=== PATIENT | male | born 1970 | race Caucasian/White ===

== ENCOUNTER 2019-11-26 14:58 | Emergency (ER) | payer BC ==
[2019-11-26 15:04] VITALS: RESP 16; TEMP 98.1
[2019-11-26] MEDS ORDERED: SODIUM CHLORIDE 0.9% 1,000 ML IV STA (15:45)
[2019-11-26] MEDS ORDERED: MECLIZINE 12.5 MG TAB PO STA (15:45)
--- NOTE | 2019-11-26 15:54 | ED ---
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 He reports he's had these episodes intermittently for the past 2 years and they Typically go away. He reports he is more concerned today as it happened while driving for a prolonged period. Patient states he had no chest pain or shortness of breath associated with this. He denies any headache. He states t hat the symptoms of dizziness lightheadedness seemed to go away quickly when it does occur. HE denies feeling dizzy or having pain in ER. - Related Data Previous Rx's Medication Instructions Recorded Meclizine HCl 25 mg PO BID #20 tablet 11/26/19 Allergies Allergy/AdvReac Type Severity Reaction Status Date / Time Penicillins Allergy Unknown Verified 11/26/19 15:04 Review of Systems ROS Statement: Those systems with pertinent positive or pertinent negative responses have been documented in the HPI. ROS Other: All systems not noted in ROS Statement are negative. Past Medical History Past Medical History: Hypertension, Thyroid Disorder History of Any Multi-Drug Resistant Organisms: None Reported Past Surgical History: No Surgical Hx Reported Past Psychological History: No Psychological Hx Reported Smoking Status: Former smoker Past Alcohol Use History: Occasional Past Drug Use History: None Reported General Exam - General Exam Comments Initial Comments: 49 -year-old male. Alert and oriented 3. Limitations: no limitations General appearance: alert, in no apparent distress Head exam: Present: atraumatic, normocephalic, normal inspection Eye exam: Present: normal appearance, PERRL, EOMI. Absent: scleral icterus, conjunctival injection, periorbital swelling ENT exam: Present: normal exam, mucous membranes moist, other (Pt has nystagmus on left lateral gaze.) Neck exam: Present: normal inspection. Absent: tenderness, meningismus, lymphadenopathy Respiratory exam: Present: normal lung sounds bilaterally. Absent: respiratory distress, wheezes, rales, rhonchi, stridor Cardiovascular Exam: Present: regular rate, normal rhythm, normal heart sounds. Absent: systolic murmur, diastolic murmur, rubs, gallop, clicks GI/Abdominal exam: Present: soft, normal bowel sounds. Absent: distended, tenderness, guarding, rebound, rigid Extremities exam: Present: normal inspection, full ROM, normal capillary refill. Absent: tenderness, pedal edema, joint swelling, calf tenderness Back exam: Present: normal inspection Neurological exam: Present: alert, oriented X3, CN II-XII intact Psychiatric exam: Present: normal affect, normal mood Skin exam: Present: warm, dry, intact, normal color. Absent: rash Course Vital Signs 11/26/19 11/26/19 15:01 17:05 Temperature 98.1 F Pulse Rate 68 81 Respiratory 16 16 Rate Blood Pressure 153/91 148/79 O2 Sat by Pulse 94 L 99 Oximetry Medical Decision Making - Medical Decision Making 49 year old male with intermittent dizziness for 2 years. PAtient at this time has nystagmus and reproducible dizziness with lateral gaze and head movement. Discussed treatment for vertigo with meclizine. TMs appear normal, and denies headache or other complaints. EKG and troponin and labs are normal. Patient advised to follow up with PCP and discussed strict return parameters. - Lab Data Result diagrams: 11/26/19 15:50 11/26/19 15:50 Lab Results 11/26/19 11/26/19 11/26/19 Range/Units 15:50 15:50 15:50 WBC 12.4 H (3.8-10.6) k/uL RBC 4.81 (4.30-5.90) m/uL Hgb 14.8 (13.0-17.5) gm/dL Hct 44.5 (39.0-53.0) % MCV 92.5 (80.0-100.0) fL MCH 30.8 (25.0-35.0) pg MCHC 33.3 (31.0-37.0) g/dL RDW 12.6 (11.5-15.5) % Plt Count 215 (150-450) k/uL Neutrophils % 65 % Lymphocytes % 23 % Monocytes % 5 % Eosinophils % 5 % Basophils % 1 % Neutrophils # 8.0 H (1.3-7.7) k/uL Lymphocytes # 2.8 (1.0-4.8) k/uL Monocytes # 0.6 (0-1.0) k/uL Eosinophils # 0.6 (0-0.7) k/uL Basophils # 0.1 (0-0.2) k/uL Sodium 139 (137-145) mmol/L Potassium 3.6 (3.5-5.1) mmol/L Chloride 105 (98-107) mmol/L Carbon Dioxide 24 (22-30) mmol/L Anion Gap 10 mmol/L BUN 14 (9-20) mg/dL Creatinine 0.90 (0.66-1.25) mg/dL Est GFR (CKD-EPI)AfAm >90 (>60 ml/min/1.73 sqM) Est GFR (CKD-EPI)NonAf >90 (>60 ml/min/1.73 sqM) Glucose 104 H (74-99) mg/dL Calcium 9.8 (8.4-10.2) mg/dL Troponin I <0.012 (0.000-0.034) ng/mL 11/26/19 16:29 EKG shows normal sinus rhythm with moderate voltage criteria for LVH. May be normal variant. Borderline EKG. Ventricular rate of 64 bpm. Intervals 176 ms. QRS ration is 96 ms. QT QTc is 46/418 ms. Disposition Clinical Impression: Dizziness, Vertigo Disposition: HOME SELF-CARE Condition: Good Instructions (If sedation given, give patient instructions): Vertigo (ED), Di zziness (ED) Additional Instructions: Please use medication as discussed. Please follow up with family doctor if symptoms have not improved over the next two days. Please return to the emergency room if your symptoms increase or worsen or for any other concerns. Prescriptions: Meclizine HCl 25 mg PO BID #20 tablet Is patient prescribed a controlled substance at d/c from ED?: No Referrals: Morgan Suarez MD [Primary Care Provider] - 1-2 days Time of Disposition: 16:56
[2019-11-26 16:13] LABS: Basophils # (A) 0.1 k/uL (0-0.2); Basophils % (A) 1 %; Eosinophils # (A) 0.6 k/uL (0-0.7); Eosinophils % (A) 5 %; HCT 44.5 % (39.0-53.0); HGB 14.8 gm/dL (13.0-17.5); Lymphocytes # (A) 2.8 k/uL (1.0-4.8); Lymphocytes % (A) 23 %; MCH 30.8 pg (25.0-35.0); MCHC 33.3 g/dL (31.0-37.0); MCV 92.5 fL (80.0-100.0); Mean Platelet Volume 7.1; Monocytes # (A) 0.6 k/uL (0-1.0); Monocytes % (A) 5 %; Neutrophils % (A) 65 %; Platelet Count 215 k/uL (150-450); RBC 4.81 m/uL (4.30-5.90); RDW 12.6 % (11.5-15.5); WBC 12.4 k/uL (3.8-10.6)
[2019-11-26 16:24] LABS: African American GFR (CKD) >90 (>60 ml/min/1.73 sqM); Anion Gap 10 mmol/L; Blood Urea Nitrogen 14 mg/dL (9-20); Calcium 9.8 mg/dL (8.4-10.2); Carbon Dioxide 24 mmol/L (22-30); Chloride 105 mmol/L (98-107); Glucose 104 mg/dL (74-99); Non-African American GFR(CKD) >90 (>60 ml/min/1.73 sqM); Potassium 3.6 mmol/L (3.5-5.1); Sodium 139 mmol/L (137-145)
[2019-11-26 17:06] VITALS: BP 148/79; PULSE 81
== END 2019-11-26 17:00 | disposition home or self-care (01) ==
LOC: EC 14:58
DX: R42 Dizziness and giddiness (principal); H55.00 Unspecified nystagmus; Z88.0 Allergy status to penicillin; Z87.891 Personal history of nicotine dependence
CPT/HCPCS: 36415; 80048; 84484; 85025; 93005; 99284

== ENCOUNTER 2022-08-06 07:23 | Inpatient (IN) | payer BC, OTHER ==
[2022-08-06] MEDS ORDERED: SODIUM CHLORIDE 0.9% 1,000 ML IV STA (07:38)
[2022-08-06] MEDS ORDERED: DEXAMETHASONE SOD PHOSPHATE 10 MG/ML 1 ML VIAL IV STA (07:38)
--- NOTE | 2022-08-06 07:42 | ED ---
General Adult HPI - General Chief complaint: Upper Respiratory Infection Stated complaint: Difficulty Speaking & Swallowing Time Seen by Provider: 08/06/22 07:26 Source: patient Mode of arrival: ambulatory Limitations: no limitations - History of Present Illness Initial comments: Dictation was produced using [employer] dictation software. please excuse any grammatical, word or spelling errors. Chief Complaint: 51-year-old male with past medical history myocardial infarction presents to emergency department for dysphagia and odynophagia History of Present Illness: Patient is a 51-year-old male states that he woke up yesterday with severe throat pain. States that it hurts pretty severely whenever he tries to swallow. Patient states that he is unable to swallow solids however he is able to swallow fluids though rather painful. Patient felt perfectly fine Sunday. Sunday dinner he had breadsticks. Denies any runny nose or sore throat. Denies history of tobacco use. Denies any fever constitutional symptoms. No obvious sick exposure. reports that patient's worse seems a little worse The ROS documented in this emergency department record has been reviewed and confirmed by me. Those systems with pertinent positive or negative responses have been documented in the HPI. All other systems are other negative and/or noncontributory. - Related Data Previous Rx's Medication Instructions Recorded Meclizine HCl 25 mg PO BID #20 tablet 11/26/19 Allergies Allergy/AdvReac Type Severity Reaction Status Date / Time Penicillins Allergy Unknown Verified 08/06/22 07:29 Review of Systems ROS Statement: Those systems with pertinent positive or pertinent negative responses have been documented in the HPI. ROS Other: All systems not noted in ROS Statement are negative. Past Medical History Past Medical History: Hypertension, Myocardial Infarction ([place]), Thyroid Disorder History of Any Multi-Drug Resistant Organisms: None Reported Past Surgical History: Heart Catheterization Past Psychological History: No Psychological Hx Reported Smoking Status: Former smoker Past Alcohol Use History: Occasional Past Drug Use History: None Reported General Exam - General Exam Comments Initial Comments: PHYSICAL EXAM: General Impression: Alert and oriented x3, mild raspiness in her voice, t olerating secretions, no acute distress HEENT: Normocephalic atraumatic, extra-ocular movements intact, pupils equal and reactive to light bilaterally, mucous membranes moist, no pharyngeal erythema Cardiovascular: Heart regular rate and rhythm Chest: Able to complete full sentences, no retractions, no tachypnea Abdomen: abdomen soft, non-tender, non-distended, no organomegaly Musculoskeletal: Pulses present and equal in all extremities, no peripheral edema Motor: no focal deficits noted Neurological: CN II-XII grossly intact, no focal motor or sensory deficits noted Skin: Intact with no visualized rashes Psych: Normal affect and mood Limitations: no limitations Course Vital Signs 08/06/22 08/06/22 08/06/22 07:27 09:02 10:26 Temperature 99 F Pulse Rate 113 H 106 H 108 H Respiratory 20 18 18 Rate Blood Pressure 160/90 164/101 142/97 O2 Sat by Pulse 96 97 94 L Oximetry Medical Decision Making - Medical Decision Making Was pt. sent in by a medical professional or institution (, PA, SPORTS TEACHER, urgent care, hospital, or care home...) When possible be specific @ -No Did you speak to anyone other than the patient for history (EMS, parent, family, police, friend...)? What history was obtained from this source @ -No Did you review nursing and triage notes (agree or disagree)? Why? @ -I reviewed and agree with nursing and triage notes Were old charts reviewed (outside hosp., previous admission, EMS record, old EKG, old radiological studies, urgent care reports/EKG's, care home records)? Report findings @ -No old charts were reviewed Differential Diagnosis (chest pain, altered mental status, abdominal pain women, abdominal pain men, vaginal bleeding, musculoskeletal, weakness, fever, dyspnea, syncope, headache, dizziness, GI bleed, back pain, seizure, CVA, palpatations, mental health)? @ -Peritonsillar abscess, retropharyngeal abscess, esophageal foreign body, esophageal mass EKG interpreted by me (3pts min.). @ -None done X-rays interpreted by me (1pt min.). @ -None done CT interpreted by me (1pt min.). @ -Subglottic inflammation U/S interpreted by me (1pt. min.). @ -None done What testing was considered but not performed or refused? (CT, X-rays, U/S, labs)? Why? @ -None What meds were considered but not given or refused? Why? @ -None Did you discuss the management of the patient with other professionals (professionals i.e. , PA, SPORTS TEACHER, lab, RT, psych nurse, social and political studies professor, skeins yarn examiner, teacher, parole hearing officer, case worker)? Give summary @ -discussed with ENT tong hooker, Dr. Wilson who is aware of patient. Dr. Wilson requests corticosteroids and antibiotics. He will consult on patient Was smoking cessation discussed for >3mins.? @ -No Was critical care preformed (if so, how long)? @ -No Were there social determinants of health that impacted care today? How? (Homelessness, low income, unemployed, alcoholism, drug addiction, transportation, low edu. Level, literacy, decrease access to med. care, fdc, rehab)? @ -No Was there de-escalation of care discussed even if they declined (Discuss DNR or withdrawal of care, Hospice)? DNR status @ -No What co-morbidities impacted this encounter? (DM, HTN, Smoking, COPD, CAD, Cancer, CVA, ARF, Chemo, Hep., AIDS, mental health diagnosis, sleep apnea, morbid obesity)? @ -None Was patient admitted / discharged? Hospital course, mention meds given and route, prescriptions, significant lab abnormalities, going to OR and other pertinent info. @ -51 y Old male presents to the emergency department for a full swallowing. He does have some changes in his voice. He is however tolerating his secretions. CT soft tissue shows signs of inflammation at subglottic area. ENT requests antibiotic, corticosteroids. Patient be admitted for medical monitoring. Undiagnosed new problem with uncertain prognosis? @ -No Drug Therapy requiring intensive monitoring for toxicity (Heparin, Nitro, Insulin, Cardizem)? @ -No Were any procedures done? @ -No Diagnosis/symptom? Acute, or Chronic, or Acute on Chronic? Uncomplicated (without systemic symptoms) or Complicated (systemic symptoms)? @ -1. Acute complicated Subglottic phlegmon Side effects of treatment? @ -No Exacerbation, Progression, or Severe Exacerbation? @ -No Poses a threat to life or bodily function? How? (Chest pain, [place], [place], pneumonia, PE, COPD, DKA, ARF, appy, cholecystitis, CVA, Diverticulitis, Homicidal, Suicidal, threat to staff... and all critical care pts) @ -yes - Lab Data Result diagrams: 08/06/22 07:53 08/06/22 07:53 Lab Results 08/06/22 08/06/22 08/06/22 Range/Units 07:48 07:48 07:53 WBC 13.9 H (3.8-10.6) k/uL RBC 4.73 (4.30-5.90) m/uL Hgb 14.7 (13.0-17.5) gm/dL Hct 42.3 (39.0-53.0) % MCV 89.5 (80.0-100.0) fL MCH 31.1 (25.0-35.0) pg MCHC 34.7 (31.0-37.0) g/dL RDW 13.5 (11.5-15.5) % Plt Count 156 (150-450) k/uL MPV 7.4 Neutrophils % 75 % Lymphocytes % 13 % Monocytes % 7 % Eosinophils % 1 % Basophils % 0 % Neutrophils # 10.5 H (1.3-7.7) k/uL Lymphocytes # 1.9 (1.0-4.8) k/uL Monocytes # 1.0 (0-1.0) k/uL Eosinophils # 0.1 (0-0.7) k/uL Basophils # 0.0 (0-0.2) k/uL Sodium (137-145) mmol/L Potassium (3.5-5.1) mmol/L Chloride (98-107) mmol/L Carbon Dioxide (22-30) mmol/L Anion Gap mmol/L BUN (9-20) mg/dL Creatinine (0.66-1.25) mg/dL Est GFR (CKD-EPI)AfAm (>60 ml/min/1.73 sqM) Est GFR (CKD-EPI)NonAf (>60 ml/min/1.73 sqM) Glucose (74-99) mg/dL Calcium (8.4-10.2) mg/dL Influenza Type A (PCR) Not Detected (Not Detectd) Influenza Type B (PCR) Not Detected (Not Detectd) RSV (PCR) Not Detected (Not Detectd) SARS-CoV-2 (PCR) Not Detected (Not Detectd) Group A Strep (PCR) NOT DETECTED (Not Detectd) 08/06/22 Range/Units 07:53 WBC (3.8-10.6) k/uL RBC (4.30-5.90) m/uL Hgb (13.0-17.5) gm/dL Hct (39.0-53.0) % MCV (80.0-100.0) fL MCH (25.0-35.0) pg MCHC (31.0-37.0) g/dL RDW (11.5-15.5) % Plt Count (150-450) k/uL MPV Neutrophils % % Lymphocytes % % Monocytes % % Eosinophils % % Basophils % % Neutrophils # (1.3-7.7) k/uL Lymphocytes # (1.0-4.8) k/uL Monocytes # (0-1.0) k/uL Eosinophils # (0-0.7) k/uL Basophils # (0-0.2) k/uL Sodium 139 (137-145) mmol/L Potassium 3.7 (3.5-5.1) mmol/L Chloride 104 (98-107) mmol/L Carbon Dioxide 24 (22-30) mmol/L Anion Gap 11 mmol/L BUN 14 (9-20) mg/dL Creatinine 0.82 (0.66-1.25) mg/dL Est GFR (CKD-EPI)AfAm >90 (>60 ml/min/1.73 sqM) Est GFR (CKD-EPI)NonAf >90 (>60 ml/min/1.73 sqM) Glucose 131 H (74-99) mg/dL Calcium 9.1 (8.4-10.2) mg/dL Influenza Type A (PCR) (Not Detectd) Influenza Type B (PCR) (Not Detectd) RSV (PCR) (Not Detectd) SARS-CoV-2 (PCR) (Not Detectd) Group A Strep (PCR) (Not Detectd) Disposition Clinical Impression: Pharyngitis Disposition: ADMITTED IP TO THIS HOSP Condition: Serious Referrals: Morgan Suarez MD [Primary Care Provider] - 1-2 days Decision Time: 10:15
[2022-08-06 08:03] LABS: Basophils % (A) 0 %; Eosinophils # (A) 0.1 k/uL (0-0.7); Eosinophils % (A) 1 %; HCT 42.3 % (39.0-53.0); HGB 14.7 gm/dL (13.0-17.5); Lymphocytes # (A) 1.9 k/uL (1.0-4.8); Lymphocytes % (A) 13 %; MCH 31.1 pg (25.0-35.0); MCHC 34.7 g/dL (31.0-37.0); MCV 89.5 fL (80.0-100.0); Mean Platelet Volume 7.4; Monocytes % (A) 7 %; Neutrophils # (A) 10.5 k/uL (1.3-7.7); Neutrophils % (A) 75 %; Platelet Count 156 k/uL (150-450); RBC 4.73 m/uL (4.30-5.90); RDW 13.5 % (11.5-15.5); WBC 13.9 k/uL (3.8-10.6)
[2022-08-06 08:17] LABS: African American GFR (CKD) >90 (>60 ml/min/1.73 sqM); Anion Gap 11 mmol/L; Blood Urea Nitrogen 14 mg/dL (9-20); Calcium 9.1 mg/dL (8.4-10.2); Carbon Dioxide 24 mmol/L (22-30); Chloride 104 mmol/L (98-107); Glucose 131 mg/dL (74-99); Non-African American GFR(CKD) >90 (>60 ml/min/1.73 sqM); Potassium 3.7 mmol/L (3.5-5.1); Sodium 139 mmol/L (137-145)
--- NOTE | 2022-08-06 08:29 | CT ---
EXAMINATION TYPE: CT soft tissue neck w con DATE OF EXAM: 08/06/2022 COMPARISON: None HISTORY: Sore throat, swelling and fever CT DLP: 504.9 mGycm CONTRAST: CT scan of the neck is performed with IV Contrast, patient injected with 100 mL of Isovue 300. Contrast enhanced CT of the neck was performed from the skull base through the lung apices. AIRWAY: The supraglottic portion of the airway appear patent and free of mass. There is thickening of the epiglottis measuring 1 cm. There is thickening of the aryepiglottic folds. Within the subglottic airway there is retropharyngeal edema with thickness of 2.3 cm. Small focal area of decreased attenu ation measuring 7 mm may reflect phlegmon or early developing abscess which does not appear drainable this time. See image 41 sequence 201. SALIVARY GLANDS: The submandibular and parotid glands are free of mass or inflammatory process. THYROID GLAND: The right thyroid lobe measuring 2.1 cm. Ultrasound correlation is advised. LYMPH NODES: Left internal jugular chain adenopathy with several lymph nodes greater than 1 cm. Subce ntimeter shotty adenopathy right internal jugular chain. LUNG APICES: No nodule or mass is seen. OTHER: Vascular structures are patent. No significant degenerative change of the cervical spine. N o abscess seen. Chronic maxillary and ethmoidal chronic sinusitis. IMPRESSION: 1. There is evidence of pharyngitis with thickening of the epiglottis and aryepiglottic folds. As not ed focal area of phlegmon is seen. Early developing abscess measuring 7 mm difficult to exclude.
[2022-08-06] MEDS ORDERED: CLINDAMYCIN 900 MG in DEXTROSE 5% IN WATER 50 ML IVPB STA ×2 (08:48)
[2022-08-06] MEDS ORDERED: cefTRIAXone IN SWFI 1,000 MG/10 ML SYRINGE IVP STA (10:23)
[2022-08-06] MEDS ORDERED: VANCOMYCIN IV PER PHARMACY 1 EACH MISC MISCELLANE PRN (10:26)
[2022-08-06] MEDS ORDERED: ACETAMINOPHEN TAB 325 MG TAB PO PRN (10:57)
[2022-08-06] MEDS ORDERED: NALOXONE 0.4 MG/ML 1 ML VIAL IV PRN (10:57)
[2022-08-06] MEDS ORDERED: VANCOMYCIN 1,750 MG in SODIUM CHLORIDE 0.9% 500 ML 500 ML IVPB ONE (11:00)
[2022-08-06] MEDS: SODIUM CHLORIDE 0.9% 1,000 ML IV SCH (11:56)
[2022-08-06] MEDS: KETOROLAC 15 MG/ML 1 ML VIAL IVP SCH ×2 (13:57→18:04)
[2022-08-06] MEDS: METOPROLOL SUCCINATE (ER) 25 MG TAB.ER.24H PO SCH (14:00)
[2022-08-06] MEDS: LEVOTHYROXINE 75 MCG TAB PO SCH (14:01)
[2022-08-06] MEDS: VANCOMYCIN 1,750 MG in SODIUM CHLORIDE 0.9% 500 ML 500 ML IVPB SCH (20:10)
[2022-08-06] MEDS: SYMBICORT 80-4.5 MCG INHALER INHALATION SCH (20:28)
[2022-08-07] MEDS: KETOROLAC 15 MG/ML 1 ML VIAL IVP SCH ×3 (00:07→12:32)
--- NOTE | 2022-08-07 00:12 | P.HPIM ---
History of Present Illness H&P Date: 08/06/22 Chief Complaint: Throat pain Patient is a 51-year-old male with a long history of hypertension, hypothyroidism, history ND status post cardiac catheterization no PCI, prior hi story of smoking presents to ER with complaints of difficulty and painful swallowing. Patient states her symptoms started since Sunday morning. Patient was having severe throat pain whenever he tries to swallow. Was able to swallow liquids however. Denies any recent sinusitis. No upper respiratory infection recently. No sore throat or runny nose. No recent trauma. No sick contacts or recent travel. Denies any fever or chills. Patient was tachycardic with heart rate 113 on admission and Tmax was 99.0. CT of the soft tissue neck showed there is evidence of pharyngitis with thickening of the epiglottis and periglottic folds. As noted focal area of phlegmon is seen. Early developing abscess measuring 7 mm difficult to exclude. Laboratory data showed WBC 13.9 hemoglobin 14.7 platelets 156 Sodium 139 potassium 3.7 chloride 104 bicarb is 24 BUN 14 and creatinine 0.82 and blood sugar is 131. Group A strep PCR not detected. Influenza A, B, RSV and COVID-19 PCR not detected. Acute pharyngitis with focal area of phlegmon and possible developing abscess. Dysphagia and odynophagia x1 day duration Hypertension Hypothyroidism History ND s/p cardiac cath no PCI GI and DVT prophylaxis Plan: Patient will be continued on IV hydration and antibiotics vancomycin and ceftriaxone. Was given a dose of dexamethasone 10 g IV push in the ER. Continue to monitor breathing status. Patient able to swallow soft diet and clear liquids at this time.. ENT was consulted for evaluation. Continue with home medications and follow-up closely. Past Medical History Past Medical History: Hypertension, Myocardial Infarction ([place]), Thyroid Disorder Last Myocardial Infarction Date:: 08/07/21 History of Any Multi-Drug Resistant Organisms: None Reported Past Surgical History: Heart Catheterization Past Anesthesia/Blood Transfusion Reactions: No Reported Reaction Past Psychological History: No Psychological Hx Reported Smoking Status: Former smoker Past Alcohol Use History: Occasional Past Drug Use History: None Reported - Past Family History Father Family Medical History: Myocardial Infarction ([place]) Mother Family Medical History: Cancer Medications and Allergies Home Medications Medication Instructions Recorded Confirmed Type Aspirin EC [Ecotrin Low Dose] 81 mg PO DAILY 08/06/22 08/06/22 History Atorvastatin [Lipitor] 20 mg PO DAILY 08/06/22 08/06/22 History Clopidogrel [Plavix] 75 mg PO DAILY 08/06/22 08/06/22 History Fluticasone Propion/Salmeterol 1 puff INHALATION RT-BID 08/06/22 08/06/22 History [Fluticasone-Salmeterol 250-50] Levothyroxine Sodium [Synthroid] 75 mcg PO DAILY 08/06/22 08/06/22 History Metoprolol Succinate [Metoprolol 25 mg PO DAILY 08/06/22 08/06/22 History Succinate ER] Nitroglycerin Sl Tabs [Nitrostat] 0.4 mg SUBLINGUAL Q5M PRN 08/06/22 08/06/22 History Sildenafil Citrate [Viagra] 100 mg PO DAILY PRN 08/06/22 08/06/22 History lisinopriL 40 mg PO DAILY 08/06/22 08/06/22 History Allergies Allergy/AdvReac Type Severity Reaction Status Date / Time Penicillins Allergy Unknown Verified 08/06/22 11:32 Physical Exam Vitals: Vital Signs Temp Pulse Pulse Resp BP BP Pulse Ox 08/06/22 14:03 98.8 F 99 18 153/96 94 L 08/06/22 12:09 99.0 F 99 18 145/91 95 08/06/22 12:01 103 H 18 138/89 96 08/06/22 10:26 108 H 18 142/97 94 L 08/06/22 09:02 106 H 18 164/101 97 08/06/22 07:27 99 F 113 H 20 160/90 96 Intake and Output 08/05/22 08/06/22 08/06/22 22:59 06:59 14:59 Other: Weight 106.594 kg Results CBC & Chem 7: 08/06/22 07:53 08/06/22 07:53 Labs: Abnormal Lab Results - Last 24 Hours (Table) 08/06/22 08/06/22 Range/Units 07:53 07:53 WBC 13.9 H (3.8-10.6) k/uL Neutrophils # 10.5 H (1.3-7.7) k/uL Glucose 131 H (74-99) mg/dL Thrombosis Risk Factor Assmnt - Choose All That Apply Any of the Below Risk Factors Present?: Yes Each Factor Represents 1 point: Age 41-60 years, Obesity (BMI >25) Other Risk Factors: No Other congenital or acquired thrombophilia - If yes, enter type in comment: No Thrombosis Risk Factor Assessment Total Risk Factor Score: 2 Thrombosis Risk Factor Assessment Level: Low Risk
[2022-08-07] MEDS: VANCOMYCIN 1,750 MG in SODIUM CHLORIDE 0.9% 500 ML 500 ML IVPB SCH ×2 (04:25→11:43)
[2022-08-07] MEDS: SODIUM CHLORIDE 0.9% 1,000 ML IV SCH ×2 (04:25→15:03)
[2022-08-07] MEDS: LEVOTHYROXINE 75 MCG TAB PO SCH (06:13)
[2022-08-07] MEDS: METOPROLOL SUCCINATE (ER) 25 MG TAB.ER.24H PO SCH (07:29)
[2022-08-07 07:39] VITALS: TEMP 98.1
[2022-08-07] MEDS ORDERED: ATORVASTATIN 20 MG TAB PO SCH (09:00)
[2022-08-07] MEDS ORDERED: lisinopriL 20 MG TAB PO SCH (09:00)
[2022-08-07] MEDS ORDERED: ASPIRIN 81 MG PO SCH (09:00)
[2022-08-07] MEDS ORDERED: CLOPIDOGREL 75 MG TAB PO SCH (09:00)
[2022-08-07 09:01] LABS: HCT 42.8 % (39.6-50.0); HGB 14.4 g/dL (13.0-17.0); MCH 30.7 pg (27.0-32.0); MCHC 33.6 g/dL (32.0-37.0); MCV 91.3 fL (80.0-97.0); Mean Platelet Volume 10.7 fL (9.5-12.2); NRBC Per 100 WBC 0 /100 WBCS (0.0-0.0); Platelet Count 154 X 10*3/uL (140-440); RBC 4.69 X 10*6/uL (4.40-5.60); RDW 13.3 % (11.5-14.5); WBC 15.07 X 10*3/uL (4.50-10.00)
[2022-08-07 09:13] LABS: Anion Gap 9.8 mmol/L (10.00-18.00); BUN/Creat Ratio 18.44 Ratio (12.00-20.00); Blood Urea Nitrogen 12.8 mg/dL (9.0-27.0); Calcium 8.7 mg/dL (8.7-10.3); Carbon Dioxide 22.7 mmol/L (20.0-27.5); Non-African American GFR(CKD) 110.4 (60.0-200.0); Potassium 3.9 mmol/L (3.5-5.5)
[2022-08-07] MEDS: SYMBICORT 80-4.5 MCG INHALER INHALATION SCH (09:26)
[2022-08-07 10:07] LABS: Basophils # (A) 0.03 X 10*3/uL (0.00-0.10); Basophils % (A) 0.2 %; Eosinophils # (A) 0 X 10*3/uL (0.04-0.35); Eosinophils % (A) 0 %; Immature Grans, Automated 0.6 %; Lymphocytes # (A) 1.52 X 10*3/uL (0.90-5.00); Lymphocytes % (A) 10.1 %; Monocytes # (A) 1.68 X 10*3/uL (0.20-1.00); Monocytes % (A) 11.1 %; Neutrophils # (A) 11.75 X 10*3/uL (1.80-7.70)
[2022-08-07 10:08] LABS: RBC Morphology NORMAL
[2022-08-07 14:17] VITALS: BP 158/89; PULSE 67; RESP 17
[2022-08-07] MEDS ORDERED: VANCOMYCIN TROUGH DUE 1 EACH MISC MISCELLANE ONE (19:00)
--- NOTE | 2022-08-07 23:49 | CONS ---
CONSULTATION REASON FOR CONSULTATION: Difficulty swallowing. HISTORY OF PRESENT ILLNESS: This patient is a 51-year-old male who presented at [facility] on 08/06/2022, complaining of having difficulty swallowing and also a severe sore throat. 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 He monitored the situation, but apparently it got worse and progressed to the point that he was not able to swallow most food stuffs, including liquids. He denies running a temperature. He denies any referred otalgia. The patient is a nonsmoker and has not used any tobacco products since 2009. The patient subsequently presented at the [facility] on 08/06/2022 with complaints of dysphagia, sore throat, etc. Physical examination was not particularly remarkable. The patient did not exhibit any trismus. A CT scan of neck with contrast revealed evidence of supraglottic edema and a possible retropharyngeal phlegmon. I was consulted by the emergency room and at that time I advised the emergency room physician to give the patient an IV dose of Decadron to reduce the swelling. I also recommended that he be started on Rocephin and vancomycin and also that the patient should be admitted for observation. The patient was given the appropriate IV rates and was placed on a soft diet, advance as tolerated. The patient states that almost immediately after receiving the steroid, he noticed that his ability to swallow was markedly improved. In fact, by the time he arrived in his room, he was able to swallow without almost any difficulty. At the present time, he states that he is not having any pain in his throat or any difficulty swallowing. The patient does not have a history of having previous episodes of sore throats or pharyngitis. Past medical history reveals patient states the he was told when he was younger that he had an allergy to penicillin. However, he notes that he has received amoxicillin on multiple occasions. CURRENT HOME MEDICINES: 1. Plavix. 2. Nitrostat. 3. Metoprolol. 4. Fluticasone. 5. Salmeterol inhaler. 6. Lisinopril. 7. Synthroid. 8. Baby aspirin daily. 9. Lipitor. REVIEW OF SYSTEMS: CARDIOVASCULAR: Positive for ASHD and hypertension. RESPIRATORY: Positive for COPD/emphysema. METABOLIC/ENDOCRINE: Positive for hypothyroidism and hypercholesterolemia. The remainder of the review of systems is unremarkable. PHYSICAL EXAMINATION: GENERAL: This patient is a 51-year-old male who is alert, cooperative, and is in no acute distress at this time. HEENT: The patient is normocephalic. Tympanic membranes are normal. Middle ear spaces are free of any fluid or infection. Pupils are equal, round, reactive to light and accommodation. Extraocular movements are within normal limits. Intranasal examination reveals [id number] septal deviation to the right with bilateral compensatory hypertrophy of the inferior turbinates and a slight amount of clear mucus on the mucous membranes. Examination of oropharynx is unremarkable. NECK: Deep palpation of the neck is negative for any neck masses or lymphadenopathy. NEUROLOGIC: Cranial nerves 2 through 12 and remainder of the head and neck exam are within normal limits. CHEST/CARDIOVASCULAR: Both lung corado are clear to percussion and auscultation. Patient is in regular sinus rhythm. S1 and S2 are present without any murmurs, S3s, or S4. There are no rales, rhonchi, or wheezes. Peripheral pulses are bilaterally symmetrical and within normal limits. ABDOMEN: There is no evidence of any masses, megaly, or tenderness. The abdomen is soft. The remainder of physical exam is unremarkable. IMPRESSION: Pharyngitis with supraglottic edema and early (less than 7 mm) retropharyngeal phlegmon. PLAN: The patient has responded quite promptly to the IV antibiotics of vancomycin and Rocephin. He states that he feels well enough to go home on oral antibiotics. I will therefore recommend that the patient could be discharged to home on Cleocin capsules 150 mg #30. I have advised him to take 2 capsules p.o. t.i.d. until gone. I have also cautioned the patient that should he develop any loose stools or diarrhea, he should stop the medication at once and either call my office or call the emergency room. I will not need to see this patient in followup. I want to take this opportunity to thank you for allowing me to assist in the care of your patient. If I could be of any further assistance, please feel free to call my office. I spent approximately 45 minutes with this patient. MMODL / IJN: [id number] / [facility] CENTERLexi
== END 2022-08-07 15:20 | disposition home or self-care (01) | DRG 153 ==
LOC: EC 07:23 → 4SSUR 10:57
PROVIDERS: ADMIT Internal Medicine; ATTEND Internal Medicine
DX: J39.1 Other abscess of pharynx (principal); J38.4 Edema of larynx; J43.9 Emphysema, unspecified; I25.10 Atherosclerotic heart disease of native coronary artery without angina pectoris; E03.9 Hypothyroidism, unspecified; I10 Essential (primary) hypertension; I25.2 Old myocardial infarction; R00.0 Tachycardia, unspecified; E78.00 Pure hypercholesterolemia, unspecified; Z28.310 Unvaccinated for COVID-19; Z87.891 Personal history of nicotine dependence; Z79.890 Hormone replacement therapy; Z88.0 Allergy status to penicillin; Z79.02 Long term (current) use of antithrombotics/antiplatelets; Z79.899 Other long term (current) drug therapy; Z79.82 Long term (current) use of aspirin
CPT/HCPCS: 36415; 70491; 80048; 85025; 87636; 87651; 94640; 96361; 96365; 96366; 96375; 99285

== ENCOUNTER 2022-12-12 14:18 | Emergency (ER) | payer OTHER ==
[2022-12-12 14:22] VITALS: RESP 18
--- NOTE | 2022-12-12 15:02 | ED ---
General Adult HPI - General Chief complaint: Extremity Problem,Nontraumatic Stated complaint: R leg and foot red and swelling Time Seen by Provider: 12/12/22 14:23 Source: patient, RN notes reviewed Mode of arrival: ambulatory Limitations: no limitations - History of Present Illness Initial comments: 52-year-old male presents emergency Department with chief complaint of right leg swelling and redness 3 days. He states that he woke up on Sunday and noticed a sore on the bottom of his right foot. Since then he noticed some redness and swelling to his right leg. He states that he woke up this morning and had worsening swelling and erythema. He denies fever, chills. Denies nausea, vomiting. - Related Data Home Medications Medication Instructions Recorded Confirmed Aspirin EC [Ecotrin Low Dose] 81 mg PO DAILY 08/06/22 08/06/22 Atorvastatin [Lipitor] 20 mg PO DAILY 08/06/22 08/06/22 Clopidogrel [Plavix] 75 mg PO DAILY 08/06/22 08/06/22 Fluticasone Propion/Salmeterol 1 puff INHALATION RT-BID 08/06/22 08/06/22 [Fluticasone-Salmeterol 250-50] Levothyroxine Sodium [Synthroid] 75 mcg PO DAILY 08/06/22 08/06/22 Metoprolol Succinate [Metoprolol 25 mg PO DAILY 08/06/22 08/06/22 Succinate ER] Nitroglycerin Sl Tabs [Nitrostat] 0.4 mg SUBLINGUAL Q5M PRN 08/06/22 08/06/22 Sildenafil Citrate [Viagra] 100 mg PO DAILY PRN 08/06/22 08/06/22 lisinopriL 40 mg PO DAILY 08/06/22 08/06/22 Previous Rx's Medication Instructions Recorded clindamycin HCL 300 mg PO QID #28 cap 12/12/22 Allergies Allergy/AdvReac Type Severity Reaction Status Date / Time Penicillins Allergy Unknown Verified 12/12/22 14:22 Review of Systems ROS Statement: Those systems with pertinent positive or pertinent negative responses have been documented in the HPI. ROS Other: All systems not noted in ROS Statement are negative. Past Medical History Past Medical History: Hypertension, Myocardial Infarction ([place]), Thyroid Disorder Last Myocardial Infarction Date:: 08/07/21 History of Any Multi-Drug Resistant Organisms: None Reported Past Surgical History: Heart Catheterization Past Anesthesia/Blood Transfusion Reactions: No Reported Reaction Past Psychological History: No Psychological Hx Reported Smoking Status: Former smoker Past Alcohol Use History: Occasional Past Drug Use History: None Reported - Past Family History Father Family Medical History: Myocardial Infarction ([place]) Mother Family Medical History: Cancer General Exam Limitations: no limitations General appearance: alert, in no apparent distress Head exam: Present: atraumatic, normocephalic, normal inspection Eye exam: Present: normal appearance, PERRL, EOMI. Absent: scleral icterus, conjunctival injection, periorbital swelling ENT exam: Present: normal exam, mucous membranes moist Neck exam: Present: normal inspection. Absent: tenderness, meningismus, lymphadenopathy Respiratory exam: Present: normal lung sounds bilaterally. Absent: respiratory distress, wheezes, rales, rhonchi, stridor Cardiovascular Exam: Present: regular rate, normal rhythm, normal heart sounds. Absent: systolic murmur, diastolic murmur, rubs, gallop, clicks GI/Abdominal exam: Present: soft, normal bowel sounds. Absent: distended, tenderness, guarding, rebound, rigid Extremities exam: Present: full ROM, normal capillary refill, other (Edema and erythema to right leg). Absent: tenderness, pedal edema, joint swelling, calf tenderness Back exam: Present: normal inspection Neurological exam: Present: alert, oriented X3 Psychiatric exam: Present: normal affect, normal mood Skin exam: Present: warm, dry, other (right foot plantar surface pustule, DP and PT pulses 2+, erythema and edema to right lower extremity) Course Vital Signs 12/12/22 12/12/22 14:19 16:54 Temperature 98.9 F 98.6 F Pulse Rate 80 70 Respiratory 18 18 Rate Blood Pressure 176/90 155/92 O2 Sat by Pulse 98 97 Oximetry Medical Decision Making - Medical Decision Making Was pt. sent in by a medical professional or institution (, PA, CRUTCHER HELPER, urgent care, hospital, or senior care...) When possible be specific @ -No Did you speak to anyone other than the patient for history (EMS, parent, family, police, friend...)? What history was obtained from this source @ -No Did you review nursing and triage notes (agree or disagree)? Why? @ -I reviewed and agree with nursing and triage notes Were old charts reviewed (outside hosp., previous admission, EMS record, old EKG, old radiological studies, urgent care reports/EKG's, senior care records)? Report findings @ -No old charts were reviewed Differential Diagnosis (chest pain, altered mental status, abdominal pain women, abdominal pain men, vaginal bleeding, weakness, fever, dyspnea, syncope, headache, dizziness, GI bleed, back pain, seizure, CVA, palpatations, mental health, musculoskeletal)? @ -Differential Musculoskeletal Muscular strain, contusion, ligament sprain, fracture, arthritis, septic arthritis, bursitis, cellulitis, muscle spasm, nerve compression, DVT, arterial occlusion, herpes zoster, electrolyte abnormality, tumor.... This is not meant to be in all inclusive list EKG interpreted by me (3pts min.). @ -none X-rays interpreted by me (1pt min.). @ -None done CT interpreted by me (1pt min.). @ -None done U/S interpreted by me (1pt. min.). @ -Ultrasound of the right lower sternal me showed no evidence of DVT What testing was considered but not performed or refused? (CT, X-rays, U/S, labs)? Why? @ -None What meds were considered but not given or refused? Why? @ -None Did you discuss the management of the patient with other professionals (professionals i.e. , PA, CRUTCHER HELPER, lab, RT, psych nurse, manager social work, communications administrator, teacher, community liaison officer, rifle case repairer)? Give summary @ -No Was smoking cessation discussed for >3mins.? @ -No Was critical care preformed (if so, how long)? @ -No Were there social determinants of health that impacted care today? How? (Homelessness, low income, unemployed, alcoholism, drug addiction, transportation, low edu. Level, literacy, decrease access to med. care, detention, r ehab)? @ -No Was there de-escalation of care discussed even if they declined (Discuss DNR or withdrawal of care, Hospice)? DNR status @ -No What co-morbidities impacted this encounter? (DM, HTN, Smoking, COPD, CAD, Cancer, CVA, ARF, Chemo, Hep., AIDS, mental health diagnosis, sleep apnea, morbid obesity)? @ -None Was patient admitted / discharged? Hospital course, mention meds given and route, prescriptions, significant lab abnormalities, going to OR and other pertinent info. @ -Discharged. Patient presented to emergency department with chief complaint of right lower extremity swelling and redness and patient has a sore on his foot. This was drained and wound culture sent. Ultrasound obtained which showed no evidence of DVT, reactive lymph node. Patient was started on clindamycin. Strict return precautions discussed. Patient stable at time of discharge. Case discussed my attending, Dr. Ruth will also evaluated the patient and is agreeable with the plan. Undiagnosed new problem with uncertain prognosis? @ -No Drug Therapy requiring intensive monitoring for toxicity (Heparin, Nitro, Insulin, Cardizem)? @ -No Were any procedures done? @ -No Diagnosis/symptom? @ -cellulitis of right lower extremity Acute, or Chronic, or Acute on Chronic? @ -acute Uncomplicated (without systemic symptoms) or Complicated (systemic symptoms)? @ -uncomplicated Side effects of treatment? @ -No Exacerbation, Progression, or Severe Exacerbation? @ -No Poses a threat to life or bodily function? How? (Chest pain, [place], [place], pneumonia, PE, COPD, DKA, ARF, appy, cholecystitis, CVA, Diverticulitis, Homicidal, Suicidal, threat to staff... and all critical care pts) @ -No Disposition Clinical Impression: Cellulitis Disposition: HOME SELF-CARE Condition: Stable Instructions (If sedation given, give patient instructions): Cellulitis (ED) Additional Instructions: Please take antibiotics to completion. Follow up with your primary care provider. Return to the emergency department for new or worsening symptoms. Prescriptions: clindamycin HCL 300 mg PO QID #28 cap Is patient prescribed a controlled substance at d/c from ED?: No Referrals: Morgan Suarez MD [Primary Care Provider] - 1-2 days
--- NOTE | 2022-12-12 15:58 | US ---
EXAMINATION TYPE: US venous doppler duplex LE RT DATE OF EXAM: 12/12/2022 3:49 PM COMPARISON: NONE CLINICAL INDICATION: Male, 52 years old with history of swelling, redness; edema redness SIDE PERFORMED: Right TECHNIQUE: The lower extremity deep venous system is examined utilizing real time linear array sonog milvia with graded compression, doppler sonography and color-flow sonography. VESSELS IMAGED: Common Femoral Vein Deep Femoral Vein Greater Saphenous Vein * Femoral Vein Popliteal Vein Small Saphenous Vein * Proximal Calf Veins (* superficial vessels) Grayscale, color doppler, spectral doppler imaging performed of the deep veins of the right lower ext remity. There is normal flow, compressibility, vascular waveforms. Right Leg: Negative for DVT Hypoechoic area seen Femoral area 3.1 x 1.4 x 1.0 cm. This is consistent with a lymph node with centr al fatty hilum. IMPRESSION: 1. No deep venous thrombosis of the right lower extremity. 2. Mildly enlarged right femoral lymph node which is likely reactive.
[2022-12-12] MEDS ORDERED: LIDOCAINE 1% INJ 10MG/ML (20 ML MDV) SQ ONE (16:19)
[2022-12-12 16:57] VITALS: BP 155/92; PULSE 70; TEMP 98.6
== END 2022-12-12 17:31 | disposition home or self-care (01) ==
LOC: EC 14:18
DX: L03.115 Cellulitis of right lower limb (principal); B96.89 Other specified bacterial agents as the cause of diseases classified elsewhere; I10 Essential (primary) hypertension; I25.2 Old myocardial infarction; E07.9 Disorder of thyroid, unspecified; Z79.82 Long term (current) use of aspirin; Z79.02 Long term (current) use of antithrombotics/antiplatelets; Z79.51 Long term (current) use of inhaled steroids; Z79.890 Hormone replacement therapy; Z79.899 Other long term (current) drug therapy; Z87.891 Personal history of nicotine dependence; Z88.0 Allergy status to penicillin
CPT/HCPCS: 87070; 87205; 93971; 99284; J2001

== ENCOUNTER 2023-06-29 06:45 | Emergency (ER) | payer OTHER ==
[2023-06-29 07:23] VITALS: TEMP 98.1
--- NOTE | 2023-06-29 07:32 | ED ---
Abdominal Pain HPI - General Chief Complaint: Abdominal Pain Stated Complaint: rt side abd pain Time Seen by Provider: 06/29/23 07:01 Source: patient, RN notes reviewed Mode of arrival: ambulatory Limitations: no limitations - History of Present Illness Initial Comments: 52-year-old male presents emergency department with chief complaint of abdominal pain. He states he has increased last 3 to 4 days on the right side. States he cannot lay on left side because it makes pain worse. Denies any trauma denies any rashes no prior abdominal surgeries no dysuria no hematuria no change in bowel habits. Denies fever. He has no association with eating making it worse. States it is more on the right upper by his ribs - Related Data Home Medications Medication Instructions Recorded Confirmed Aspirin EC [Ecotrin Low Dose] 81 mg PO DAILY 08/06/22 08/06/22 Atorvastatin [Lipitor] 20 mg PO DAILY 08/06/22 08/06/22 Clopidogrel [Plavix] 75 mg PO DAILY 08/06/22 08/06/22 Fluticasone Propion/Salmeterol 1 puff INHALATION RT-BID 08/06/22 08/06/22 [Fluticasone-Salmeterol 250-50] Levothyroxine Sodium [Synthroid] 75 mcg PO DAILY 08/06/22 08/06/22 Metoprolol Succinate [Metoprolol 25 mg PO DAILY 08/06/22 08/06/22 Succinate ER] Nitroglycerin Sl Tabs [Nitrostat] 0.4 mg SUBLINGUAL Q5M PRN 08/06/22 08/06/22 Sildenafil Citrate [Viagra] 100 mg PO DAILY PRN 08/06/22 08/06/22 lisinopriL 40 mg PO DAILY 08/06/22 08/06/22 Previous Rx's Medication Instructions Recorded clindamycin HCL 300 mg PO QID #28 cap 12/12/22 Allergies Allergy/AdvReac Type Severity Reaction Status Date / Time Penicillins Allergy Unknown Verified 06/29/23 07:12 Review of Systems ROS Statement: Those systems with pertinent positive or pertinent negative responses have been documented in the HPI. ROS Other: All systems not noted in ROS Statement are negative. Past Medical History Past Medical History: Hypertension, Myocardial Infarction ([place]), Thyroid Disorder Last Myocardial Infarction Date:: 08/07/21 History of Any Multi-Drug Resistant Organisms: None Reported Past Surgical History: Heart Catheterization Past Anesthesia/Blood Transfusion Reactions: No Reported Reaction Past Psychological History: No Psychological Hx Reported Smoking Status: Former smoker Past Alcohol Use History: Occasional Past Drug Use History: None Reported - Past Family History Father Family Medical History: Myocardial Infarction ([place]) Mother Family Medical History: Cancer General Exam Limitations: no limitations General appearance: alert, in no apparent distress Head exam: Present: atraumatic, normocephalic, normal inspection Respiratory exam: Present: normal lung sounds bilaterally. Absent: respiratory distress, wheezes, rales, rhonchi, stridor Cardiovascular Exam: Present: regular rate, normal rhythm, normal heart sounds. Absent: systolic murmur, diastolic murmur, rubs, gallop, clicks GI/Abdominal exam: Present: soft, tenderness (Right upper quadrant), normal bowel sounds. Absent: distended, guarding, rebound, rigid Back exam: Absent: CVA tenderness (R), CVA tenderness (L) Neurological exam: Present: alert Course Vital Signs 06/29/23 06/29/23 07:09 10:17 Temperature 98.1 F 98.1 F Pulse Rate 82 84 Respiratory 16 20 Rate Blood Pressure 161/94 161/100 O2 Sat by Pulse 95 94 L Oximetry Medical Decision Making - Medical Decision Making Was pt. sent in by a medical professional or institution (ZAYNAB Lau, PUBLICATIONS MANAGER, urgent care, hospital, or group home...) When possible be specific @ -No Did you speak to anyone other than the patient for history (EMS, parent, family, police, friend...)? What history was obtained from this source @ -No Did you review nursing and triage notes (agree or disagree)? Why? @ -I reviewed and agree with nursing and triage notes Were old charts reviewed (outside hosp., previous admission, EMS record, old EKG, old radiological studies, urgent care reports/EKG's, group home records)? Report findings @ -No old charts were reviewed Differential Diagnosis (chest pain, altered mental status, abdominal pain women, abdominal pain men, vaginal bleeding, weakness, fever, dyspnea, syncope, headache, dizziness, GI bleed, back pain, seizure, CVA, palpatations, mental health, musculoskeletal)? @ -[Differential Abdominal Pain Men: Appendicitis, cholecystitis, diverticulosis, ischemic bowel, pancreatitis, hepatitis, UTI, gastroenteritis, AAA, incarcerated hernia, bowel obstruction, constipation, inflammatory bowel, hepatitis, peptic ulcer disease, splenic infarction, perforated viscus, testicular torsion, this is not meant to be an all-inclusive list EKG interpreted by me (3pts min.). @ -None X-rays interpreted by me (1pt min.). @ -[None done CT interpreted by me (1pt min.). @ -CT abdomen pelvis showing liver fatty, cirrhosis, no other signs of acute infection U/S interpreted by me (1pt. min.). @ -Gallbladder showing cholelithiasis without evidence of acute cholecystitis What testing was considered but not performed or refused? (CT, X-rays, U/S, labs)? Why? @ -None What meds were considered but not given or refused? Why? @ -None Did you discuss the management of the patient with other professionals (professionals i.e. , PA, PUBLICATIONS MANAGER, lab, RT, psych nurse, social work associate, order selector, teacher, budget officer, complex case manager)? Give summary @ -No Was smoking cessation discussed for >3mins.? @ -No Was critical care preformed (if so, how long)? @ -No Were there social determinants of health that impacted care today? How? (Homelessness, low income, unemployed, alcoholism, drug addiction, transpor tation, low edu. Level, literacy, decrease access to med. care, snf, rehab)? @ -No Was there de-escalation of care discussed even if they declined (Discuss DNR or withdrawal of care, Hospice)? DNR status @ -No What co-morbidities impacted this encounter? (DM, HTN, Smoking, COPD, CAD, Cancer, CVA, ARF, Chemo, Hep., AIDS, mental health diagnosis, sleep apnea, morbid obesity)? @ -None Was patient admitted / discharged? Hospital course, mention meds given and route, prescriptions, significant lab abnormalities, going to OR and other pertinent info. @ -Discharged patient has evidence of gallstones will place on low-fat diet, given analgesics patient vies to contact surgeon return for any worsening or changing symptoms. Undiagnosed new problem with uncertain prognosis? @ -No Drug Therapy requiring intensive monitoring for toxicity (Heparin, Nitro, Insulin, Cardizem)? @ -No Were any procedures done? @ -No Diagnosis/symptom? @ cholelithiasis Acute, or Chronic, or Acute on Chronic? @ -Acute Uncomplicated (without systemic symptoms) or Complicated (systemic symptoms)? @ -Uncomplicated Side effects of treatment? @ -No Exacerbation, Progression, or Severe Exacerbation? @ -No Poses a threat to life or bodily function? How? (Chest pain, [place], [place], pneumonia, PE, COPD, DKA, ARF, appy, cholecystitis, CVA, Diverticulitis, Homicidal, Suicidal, threat to staff... and all critical care pts) @ -No - Lab Data Result diagrams: 06/29/23 07:44 06/29/23 07:44 Lab Results 06/29/23 06/29/23 06/29/23 Range/Units 07:44 07:44 07:44 WBC 9.1 (3.8-10.6) k/uL RBC 4.81 (4.30-5.90) m/uL Hgb 15.1 (13.0-17.5) gm/dL Hct 43.3 (39.0-53.0) % MCV 90.0 (80.0-100.0) fL MCH 31.3 (25.0-35.0) pg MCHC 34.8 (31.0-37.0) g/dL RDW 13.3 (11.5-15.5) % Plt Count 149 L (150-450) k/uL MPV 7.6 Neutrophils % 59 % Lymphocytes % 25 % Monocytes % 6 % Eosinophils % 6 % Basophils % 1 % Neutrophils # 5.3 (1.3-7.7) k/uL Lymphocytes # 2.3 (1.0-4.8) k/uL Monocytes # 0.6 (0-1.0) k/uL Eosinophils # 0.5 (0-0.7) k/uL Basophils # 0.1 (0-0.2) k/uL Sodium 140 (137-145) mmol/L Potassium 3.8 (3.5-5.1) mmol/L Chloride 108 H (98-107) mmol/L Carbon Dioxide 23 (22-30) mmol/L Anion Gap 9 mmol/L BUN 12 (9-20) mg/dL Creatinine 0.68 (0.66-1.25) mg/dL Est GFR (CKD-EPI)AfAm >90 (>60 ml/min/1.73 sqM) Est GFR (CKD-EPI)NonAf >90 (>60 ml/min/1.73 sqM) Glucose 146 H (74-99) mg/dL Plasma Lactic Acid León 1.3 (0.7-2.0) mmol/L Calcium 9.1 (8.4-10.2) mg/dL Total Bilirubin 1.4 H (0.2-1.3) mg/dL AST 35 (17-59) U/L ALT 57 H (4-49) U/L Alkaline Phosphatase 82 (38-126) U/L Total Protein 7.8 (6.3-8.2) g/dL Albumin 4.3 (3.5-5.0) g/dL Lipase 121 (23-300) U/L Disposition Clinical Impression: Cholelithiasis Disposition: HOME SELF-CARE Condition: Stable Instructions (If sedation given, give patient instructions): Gallstones (ED), Low Fat Diet (ED) Additional Instructions: Please return to the Emergency Department if symptoms worsen or any other concerns. Is patient prescribed a controlled substance at d/c from ED?: No Referrals: Morgan Suarez MD [Primary Care Provider] - 1-2 days Jamie Neri MD [STAFF PHYSICIAN] - 1-2 days Time of Disposition: 10:02
[2023-06-29 07:59] LABS: Basophils # (A) 0.1 k/uL (0-0.2); Basophils % (A) 1 %; Eosinophils # (A) 0.5 k/uL (0-0.7); Eosinophils % (A) 6 %; HCT 43.3 % (39.0-53.0); HGB 15.1 gm/dL (13.0-17.5); Lymphocytes # (A) 2.3 k/uL (1.0-4.8); Lymphocytes % (A) 25 %; MCH 31.3 pg (25.0-35.0); MCHC 34.8 g/dL (31.0-37.0); Mean Platelet Volume 7.6; Monocytes # (A) 0.6 k/uL (0-1.0); Monocytes % (A) 6 %; Neutrophils # (A) 5.3 k/uL (1.3-7.7); Neutrophils % (A) 59 %; Platelet Count 149 k/uL (150-450); RBC 4.81 m/uL (4.30-5.90); RDW 13.3 % (11.5-15.5); WBC 9.1 k/uL (3.8-10.6)
[2023-06-29 08:11] LABS: ALT 57 U/L (4-49); AST 35 U/L (17-59); African American GFR (CKD) >90 (>60 ml/min/1.73 sqM); Albumin 4.3 g/dL (3.5-5.0); Alkaline Phosphatase 82 U/L (38-126); Anion Gap 9 mmol/L; Blood Urea Nitrogen 12 mg/dL (9-20); Calcium 9.1 mg/dL (8.4-10.2); Carbon Dioxide 23 mmol/L (22-30); Chloride 108 mmol/L (98-107); Glucose 146 mg/dL (74-99); Lipase 121 U/L (23-300); Non-African American GFR(CKD) >90 (>60 ml/min/1.73 sqM); Potassium 3.8 mmol/L (3.5-5.1); Sodium 140 mmol/L (137-145); Total Bilirubin 1.4 mg/dL (0.2-1.3); Total Protein 7.8 g/dL (6.3-8.2)
--- NOTE | 2023-06-29 08:43 | US ---
EXAMINATION TYPE: US gallbladder DATE OF EXAM: 06/29/2023 COMPARISON: NONE CLINICAL INDICATION: Male, 52 years old with history of pain; RUQ pain x 4 days TECHNIQUE: Multiple sonographic images of the right upper quadrant are obtained. FINDINGS: EXAM MEASUREMENTS: Liver Length: 21.6 cm Gallbladder Wall: 0.2 cm CBD: 0.5 cm Right Kidney: 12.3 x 4.7 x 5.3 cm SMALL LOT OPERATOR NOTES:patient ate hashbrowns 30 mins prior to exam Pancreas: wnl Liver: enlarged and difficult to penetrate, no masses or cystic structures. Gallbladder: fundal fold with probable small stone Evidence for sonographic Peña's sign: no CBD: wnl Right Kidney: wnl IMPRESSION: 1. Cholelithiasis. 2. Hepatic steatosis.
--- NOTE | 2023-06-29 09:24 | CT ---
EXAMINATION TYPE: CT abdomen pelvis w con CT DLP: 1565.3 mGycm, Automated exposure control for dose reduction was used. DATE OF EXAM: 06/29/2023 9:10 AM COMPARISON: None. CLINICAL INDICATION:Male, 52 years old with history of abd pain; Rt sided abd pain TECHNIQUE: Axial CT abdomen pelvis w con;Sagittal and coronal reformats were created on a separate w orkstation. Contrast used:100 mL of Isovue 370 with IV Contrast, (none if empty) Oral contrast used: without Oral Contrast (none if empty) FINDINGS: LOWER CHEST: Unremarkable ABDOMEN LIVER: Diffusely hypoattenuating parenchyma. Nodular contour to the parenchyma. Caudate lobe hypertro phy changes. Mild Fat stranding changes are seen around the liver more posteriorly and inferiorly. GALLBLADDER AND BILE DUCTS: Gallstone in the gallbladder fundus. PANCREAS: Unremarkable. SPLEEN: Unremarkable. ADRENAL GLANDS: Unremarkable. KIDNEYS AND URETERS: No evidence of hydronephrosis or renal calculus. The ureters are unremarkable. PELVIS BLADDER: Unremarkable REPRODUCTIVE: Unremarkable. ABDOMEN & PELVIS STOMACH AND BOWEL: No evidence of bowel obstruction. PERITONEUM/RETROPERITONEUM: No evidence of pneumoperitoneum or free fluid. VASCULATURE: No evidence of aortic aneurysm. MUSCULOSKELETAL: No acute osseous abnormalities, left iliac bone sclerotic focus suggestive of bone i sland. LYMPH NODES: No gross evidence for lymphadenopathy. SOFT TISSUE/ABDOMINAL WALL: Fat-containing umbilical hernia. IMPRESSION: Hepatic steatosis with evidence of cirrhosis. Correlate with liver markers. There is mild Fat strandi ng changes around the liver correlate for superimposed hepatitis.
[2023-06-29] MEDS: ACET/COD 300 MG/30 MG STARTER PACK 6 TAB BTL PO STA (10:11)
[2023-06-29 10:31] VITALS: BP 161/100; PULSE 84; RESP 20
== END 2023-06-29 10:19 | disposition home or self-care (01) ==
LOC: EC 06:45
DX: K80.20 Calculus of gallbladder without cholecystitis without obstruction (principal); K76.0 Fatty (change of) liver, not elsewhere classified; K74.60 Unspecified cirrhosis of liver; I10 Essential (primary) hypertension; I25.2 Old myocardial infarction; E07.9 Disorder of thyroid, unspecified; Z87.891 Personal history of nicotine dependence; Z79.890 Hormone replacement therapy; Z79.899 Other long term (current) drug therapy; Z88.0 Allergy status to penicillin; Z79.82 Long term (current) use of aspirin; Z79.01 Long term (current) use of anticoagulants
CPT/HCPCS: 36415; 80053; 83605; 83690; 85025; 76705; 74177; 99284; Q9967

== ENCOUNTER → 2023-08-31 | Outpatient (CLI) | payer OTHER ==
--- NOTE | 2023-08-31 13:56 | US ---
EXAMINATION TYPE: US venous doppler duplex LE DATE OF EXAM: 08/31/2023 1:20 PM COMPARISON: NONE CLINICAL INDICATION: Male, 52 years old with history of R60.0 LOCALIZED EDEMA; Pain and edema bilater al lower legs SIDE PERFORMED: bilateral TECHNIQUE: The lower extremity deep venous system is examined utilizing real time linear array sonog milvia with graded compression, doppler sonography and color-flow sonography. VESSELS IMAGED: Common Femoral Vein Deep Femoral Vein Greater Saphenous Vein * Femoral Vein Popliteal Vein Small Saphenous Vein * Proximal Calf Veins (* superficial vessels) Right Leg: No evidence of DVT Left Leg: No evidence of DVT IMPRESSION: Grayscale, color doppler, spectral doppler imaging performed of the deep veins of the lo wer extremities. There is normal flow, compressibility, vascular waveforms.
== END | disposition home or self-care (01) ==
LOC: RADUSWWP 12:54
PROVIDERS: ATTEND Family Medicine
DX: R60.0 Localized edema (principal)
CPT/HCPCS: 93970

== ENCOUNTER 2024-04-20 09:28 | Emergency (ER) | payer OTHER ==
[2024-04-20 09:34] VITALS: RESP 16; TEMP 98
[2024-04-20 10:02] LABS: Appearance,Urine Clear (Clear); Bilirubin,Urine Negative (Negative); Blood,Urine Negative (Negative); Color,Urine Yellow; Glucose,Urine (UA) Trace (Negative); Ketones,Urine Negative (Negative); Leukocyte Esterase,Urine Negative (Negative); Nitrite,Urine Negative (Negative); Protein,Urine Negative (Negative); Specific Gravity,Urine 1.018 (1.001-1.035); Urobilinogen,Urine <2.0 mg/dL (<2.0)
--- NOTE | 2024-04-20 10:26 | ED ---
Abdominal Pain HPI - General Chief Complaint: Abdominal Pain Stated Complaint: PAIN R SIDE Time Seen by Provider: 04/20/24 09:40 Source: patient, RN notes reviewed Mode of arrival: ambulatory Limitations: no limitations - History of Present Illness Initial Comments: 53-year-old male presents emergency department with chief complaint of right abdominal pain, concern for gallstones. Patient states he had a gallstone in the past states that he came for medication symptoms improved and he went home. 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 Patient does states that symptoms are not improving and was more concerned of gallstones again. Patient denies any dysuria hematuria denies any similar nausea vomiting fevers chills no chest pain otherwise. - Related Data Home Medications Medication Instructions Recorded Confirmed Aspirin EC [Ecotrin Low Dose] 81 mg PO DAILY 08/06/22 08/06/22 Atorvastatin [Lipitor] 20 mg PO DAILY 08/06/22 08/06/22 Clopidogrel [Plavix] 75 mg PO DAILY 08/06/22 08/06/22 Fluticasone Propion/Salmeterol 1 puff INHALATION RT-BID 08/06/22 08/06/22 [Fluticasone-Salmeterol 250-50] Levothyroxine Sodium [Synthroid] 75 mcg PO DAILY 08/06/22 08/06/22 Metoprolol Succinate [Metoprolol 25 mg PO DAILY 08/06/22 08/06/22 Succinate ER] Nitroglycerin Sl Tabs [Nitrostat] 0.4 mg SUBLINGUAL Q5M PRN 08/06/22 08/06/22 Sildenafil Citrate [Viagra] 100 mg PO DAILY PRN 08/06/22 08/06/22 lisinopriL 40 mg PO DAILY 08/06/22 08/06/22 Previous Rx's Medication Instructions Recorded clindamycin HCL 300 mg PO QID #28 cap 12/12/22 Cyclobenzaprine [Flexeril] 10 mg PO TID PRN #15 tab 04/20/24 Allergies Allergy/AdvReac Type Severity Reaction Status Date / Time Penicillins Allergy Unknown Verified 04/20/24 09:34 Review of Systems ROS Statement: Those systems with pertinent positive or pertinent negative responses have been documented in the HPI. ROS Other: All systems not noted in ROS Statement are negative. Past Medical History Past Medical History: Hypertension, Myocardial Infarction ([place]), Thyroid Disorder Additional Past Medical History / Comment(s): gallstones Last Myocardial Infarction Date:: 08/07/21 History of Any Multi-Drug Resistant Organisms: None Reported Past Surgical History: Heart Catheterization Past Anesthesia/Blood Transfusion Reactions: No Reported Reaction Past Psychological History: No Psychological Hx Reported Smoking Status: Former smoker Past Alcohol Use History: Occasional Past Drug Use History: None Reported - Past Family History Father Family Medical History: Myocardial Infarction ([place]) Mother Family Medical History: Cancer General Exam Limitations: no limitations General appearance: alert, in no apparent distress Head exam: Present: atraumatic, normocephalic, normal inspection Eye exam: Present: normal appearance, PERRL, EOMI. Absent: scleral icterus, conjunctival injection, periorbital swelling ENT exam: Present: normal exam, normal oropharynx, mucous membranes moist Neck exam: Present: normal inspection, full ROM. Absent: tenderness, meningismus, lymphadenopathy Respiratory exam: Present: normal lung sounds bilaterally, chest wall tenderness. Absent: respiratory distress, wheezes, rales, rhonchi, stridor Cardiovascular Exam: Present: regular rate, normal rhythm, normal heart sounds. Absent: systolic murmur, diastolic murmur, rubs, gallop, clicks GI/Abdominal exam: Present: soft, tenderness, normal bowel sounds. Absent: distended, guarding, rebound, rigid Back exam: Absent: CVA tenderness (R), CVA tenderness (L) Neurological exam: Present: alert Course Vital Signs 04/20/24 09:31 Temperature 98 F Pulse Rate 68 Respiratory 16 Rate Blood Pressure 158/83 O2 Sat by Pulse 97 Oximetry Medical Decision Making - Medical Decision Making Was pt. sent in by a medical professional or institution (, PA, MANAGEMENT ENGINEER, urgent care, hospital, or [facility]...) When possible be specific @ -No Did you speak to anyone other than the patient for history (EMS, parent, family, police, friend...)? What history was obtained from this source @ -No Did you review nursing and triage notes (agree or disagree)? Why? @ -I reviewed and agree with nursing and triage notes Were old charts reviewed (outside hosp., previous admission, EMS record, old EKG, old radiological studies, urgent care reports/EKG's, [facility] records)? Report findings @ -No old charts were reviewed Differential Diagnosis (chest pain, altered mental status, abdominal pain women, abdominal pain men, vaginal bleeding, weakness, fever, dyspnea, syncope, headache, dizziness, GI bleed, back pain, seizure, CVA, palpatations, mental health, musculoskeletal)? @ -Differential Abdominal Pain Women: Appendicitis, Cholecystitis, diverticulosis, ischemic bowel, pancreatitis, hepatitis, UTI, gastroenteritis, AAA, incarcerated hernia, bowel obstruction, constipation, inflammatory bowel, hepatitis, peptic ulcer disease, splenic infarction, perforated viscus, vulvitis, ovarian torsion, PID, kidney stone, placenta abruption, this is not meant to be an all-inclusive list EKG interpreted by me (3pts min.). @ -None X-rays interpreted by me (1pt min.). @ -None done CT interpreted by me (1pt min.). @ -None done U/S interpreted by me (1pt. min.). @ -Ultra sound e gallbladder showing dependent gallbladder within the fundus no obstruction What testing was considered but not performed or refused? (CT, X-rays, U/S, labs)? Why? @ -None What meds were considered but not given or refused? Why? @ -None Did you discuss the management of the patient with other professionals (professionals i.e. , PA, MANAGEMENT ENGINEER, lab, RT, psych nurse, social welfare research worker, public affairs officer, teacher, airline pilot/first officer, oil field caser)? Give summary @ -No Was smoking cessation discussed for >3mins.? @ -No Was critical care preformed (if so, how long)? @ -No Were there social determinants of health that impacted care today? How? (Homelessness, low income, unemployed, alcoholism, drug addiction, transportation, low edu. Level, literacy, decrease access to med. care, fpc, rehab)? @ -No Was there de-escalation of care discussed even if they declined (Discuss DNR or withdrawal of care, Hospice)? DNR status @ -No What co-morbidities impacted this encounter? (DM, HTN, Smoking, COPD, CAD, Cancer, CVA, ARF, Chemo, Hep., AIDS, mental health diagnosis, sleep apnea, morbid obesity)? @ -None Was patient admitted / discharged? Hospital course, mention meds given and route, prescriptions, significant lab abnormalities, going to OR and other per tinent info. @ -[Discharge patient's pain is reproducible more consistent with chest wall pain, abdominal wall strain. Patient does have gallstones but not obstructing patient will be discharged in stable condition with close follow-up return parameters el. Undiagnosed new problem with uncertain prognosis? @ -No Drug Therapy requiring intensive monitoring for toxicity (Heparin, Nitro, Insulin, Cardizem)? @ -No Were any procedures done? @ -No Diagnosis/symptom? @ -Abdominal, chest wall strain gallstones Acute, or Chronic, or Acute on Chronic? @ -Acute Uncomplicated (without systemic symptoms) or Complicated (systemic symptoms)? @ -Uncomplicated Side effects of treatment? @ -No Exacerbation, Progression, or Severe Exacerbation? @ -No Poses a threat to life or bodily function? How? (Chest pain, [place], [place], pneumonia, PE, COPD, DKA, ARF, appy, cholecystitis, CVA, Diverticulitis, Homicidal, S uicidal, threat to staff... and all critical care pts) @ -No - Lab Data Result diagrams: 04/20/24 10:29 04/20/24 10:29 Lab Results 04/20/24 04/20/24 04/20/24 Range/Units 09:38 10:29 10:29 WBC 9.2 (3.8-10.6) k/uL RBC 4.84 (4.30-5.90) m/uL Hgb 14.5 (13.0-17.5) gm/dL Hct 43.5 (39.0-53.0) % MCV 90.0 (80.0-100.0) fL MCH 30.0 (25.0-35.0) pg MCHC 33.3 (31.0-37.0) g/dL RDW 13.4 (11.5-15.5) % Plt Count 164 (150-450) k/uL MPV 7.8 Neutrophils % 57 % Lymphocytes % 24 % Monocytes % 9 % Eosinophils % 7 % Basophils % 0 % Neutrophils # 5.3 (1.3-7.7) k/uL Lymphocytes # 2.2 (1.0-4.8) k/uL Monocytes # 0.8 (0-1.0) k/uL Eosinophils # 0.6 (0-0.7) k/uL Basophils # 0.0 (0-0.2) k/uL Sodium 139 (137-145) mmol/L Potassium 4.2 (3.5-5.1) mmol/L Chloride 106 (98-107) mmol/L Carbon Dioxide 25 (22-30) mmol/L Anion Gap 8 mmol/L BUN 9 (9-20) mg/dL Creatinine 0.68 (0.66-1.25) mg/dL Est GFR (CKD-EPI)AfAm >90 (>60 ml/min/1.73 sqM) Est GFR (CKD-EPI)NonAf >90 (>60 ml/min/1.73 sqM) Glucose 153 H (74-99) mg/dL Calcium 8.9 (8.4-10.2) mg/dL Total Bilirubin 1.0 (0.2-1.3) mg/dL AST 32 (17-59) U/L ALT 60 H (4-49) U/L Alkaline Phosphatase 90 (38-126) U/L Total Protein 6.6 (6.3-8.2) g/dL Albumin 3.9 (3.5-5.0) g/dL Lipase 111 (23-300) U/L Urine Color Yellow Urine Appearance Clear (Clear) Urine pH 6.0 (5.0-8.0) Ur Specific [place] 1.018 (1.001-1.035) Urine Protein Negative (Negative) Urine Glucose (UA) Trace H (Negative) Urine Ketones Negative (Negative) Urine Blood Negative (Negative) Urine Nitrite Negative (Negative) Urine Bilirubin Negative (Negative) Urine Urobilinogen <2.0 (<2.0) mg/dL Ur Leukocyte Esterase Negative (Negative) Disposition Clinical Impression: Muscle strain of chest wall, Gall stones Disposition: HOME SELF-CARE Condition: Stable Instructions (If sedation given, give patient instructions): Muscle Strain (ED) Additional Instructions: Please return to the Emergency Department if symptoms worsen or any other concerns. Prescriptions: Cyclobenzaprine [Flexeril] 10 mg PO TID PRN #15 tab PRN Reason: Muscle Spasm Is patient prescribed a controlled substance at d/c from ED?: No Referrals: Morgan Suarez MD [Primary Care Provider] - 1-2 days Time of Disposition: 12:09
[2024-04-20 10:57] LABS: Basophils % (A) 0 %; Eosinophils # (A) 0.6 k/uL (0-0.7); Eosinophils % (A) 7 %; HCT 43.5 % (39.0-53.0); HGB 14.5 gm/dL (13.0-17.5); Lymphocytes # (A) 2.2 k/uL (1.0-4.8); Lymphocytes % (A) 24 %; MCHC 33.3 g/dL (31.0-37.0); Mean Platelet Volume 7.8; Monocytes # (A) 0.8 k/uL (0-1.0); Monocytes % (A) 9 %; Neutrophils # (A) 5.3 k/uL (1.3-7.7); Neutrophils % (A) 57 %; Platelet Count 164 k/uL (150-450); RBC 4.84 m/uL (4.30-5.90); RDW 13.4 % (11.5-15.5); WBC 9.2 k/uL (3.8-10.6)
--- NOTE | 2024-04-20 11:06 | US ---
EXAMINATION TYPE: US gallbladder DATE OF EXAM: 04/20/2024 COMPARISON: CT abdomen and pelvis and prior gallbladder ultrasound October 29, 2023 CLINICAL INDICATION: Male, 53 years old with history of pain; right sided pain, last episode 1 year a go, known GB stone TECHNIQUE: Grayscale and color Doppler imaging of the right upper quadrant was performed. FINDINGS: EXAM MEASUREMENTS: Liver Length: 18.1 cm Gallbladder Wall: 0.1 cm CBD: 0.6 cm Right Kidney: 11.6 x 4.6 x 4.9 cm BEEF CATTLE SPECIALIST NOTES:Patient had breakfast burrito 2 hours prior to exam Pancreas: portion seen appears wnl Liver: difficult to penetrate, upper limits for size Gallbladder: single stone seen within fundus = 0.5cm Evidence for sonographic Peña's sign: yes CBD: wnl Right Kidney: wnl Suboptimal study due to no prep. Liver size stable and upper limits of normal with heterogeneous hype rechoic appearance redemonstrated. Finding consistent with known diffuse fatty infiltrative hepatocel lular disease. Single small gallstone redemonstrated. No pericholecystic fluid or abnormal gallbladde r wall thickening. IMPRESSION: Suboptimal study. Equivocal findings as there is gallstone with positive sonographic Peña's sign, c onsider HIDA scan follow-up. [facility], , 04/20/2024 11:04 AM
[2024-04-20 11:18] LABS: ALT 60 U/L (4-49); AST 32 U/L (17-59); African American GFR (CKD) >90 (>60 ml/min/1.73 sqM); Albumin 3.9 g/dL (3.5-5.0); Alkaline Phosphatase 90 U/L (38-126); Anion Gap 8 mmol/L; Blood Urea Nitrogen 9 mg/dL (9-20); Calcium 8.9 mg/dL (8.4-10.2); Carbon Dioxide 25 mmol/L (22-30); Chloride 106 mmol/L (98-107); Glucose 153 mg/dL (74-99); Lipase 111 U/L (23-300); Non-African American GFR(CKD) >90 (>60 ml/min/1.73 sqM); Potassium 4.2 mmol/L (3.5-5.1); Sodium 139 mmol/L (137-145); Total Protein 6.6 g/dL (6.3-8.2)
[2024-04-20] MEDS: CYCLOBENZAPRINE 10MG STARTER 3 TAB BTL PO STA (12:16)
[2024-04-20 12:21] VITALS: BP 174/106; PULSE 60
== END 2024-04-20 12:21 | disposition home or self-care (01) ==
LOC: EC 09:28
DX: S29.011A Strain of muscle and tendon of front wall of thorax, initial encounter (principal); K80.20 Calculus of gallbladder without cholecystitis without obstruction; Z87.891 Personal history of nicotine dependence; Z88.0 Allergy status to penicillin
CPT/HCPCS: 36415; 76705; 80053; 81003; 83690; 85025; 99284